=== PATIENT | male | born 1965 | race Caucasian/White ===

== ENCOUNTER → 2019-10-21 13:21 | Outpatient (CLI) | payer OTHER, MEDICAID, SELFPAY ==
--- NOTE | 2019-10-21 13:24 | DI.US.S_ITS ---
PROCEDURE: US PERIPH VENOUS LOW EXTREM LT INDICATIONS: CALF SWELLING TECHNIQUE: Real-time imaging, as well as color and pulse Doppler interrogation, were performed of the lower extremity deep veins from the inguinal ligament to the popliteal fossa. COMPARISON: None. FINDINGS: The common femoral, femoral and popliteal veins are normally compressible, and free of intraluminal thrombus. Color and pulse Doppler demonstrate normal phasic intraluminal flow. There is normal augmentation response to distal compression maneuver. IMPRESSION: No DVT in the left lower extremity. Dictated by: Danny Shay M.D. on 10/21/2019 at 13:54 Approved by: Danny Shay M.D. on 10/21/2019 at 13:54
== END ==
PROVIDERS: Referring Provider Physician Assistant; Visit Provider Physician Assistant
DX: M79.89 Other specified soft tissue disorders (principal)
CPT/HCPCS: 93971

== ENCOUNTER 2021-05-22 18:27 | Inpatient (IN) | payer OTHER, MEDICAID, SELFPAY ==
[2021-05-22 18:32] VITALS: BP 131/79; PULSE 113; RESP 22; TEMP 36.8; O2SAT 96
--- NOTE | 2021-05-22 18:55 | ED_ITS ---
HPI - Skin/Abscess/Foreign Bdy <SHANNON Aguirre - Last Filed: 05/22/21 20:38> General Chief complaint: Skin/Abscess/Foreign Body Stated complaint: Cut left hand pos infection Time Seen by Provider: 05/22/21 18:46 Source: patient Mode of arrival: Ambulatory Limitations: no limitations History of Present Illness HPI narrative: The patient is a 56-year-old male current everyday smoker who presents to the emergency department with a 6 day history of pain and swelling of his left index finger. Does have a history of cellulitis. 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 He states that he was seen at a walk-in clinic yesterday. He states he had an x-ray done. He states that his tetanus is up-to-date as he had it for years ago. He states that since yesterday his finger has gotten increasingly swollen, painful and red. He states he took Tylenol for pain, otherwise has not had anything for pain today. He states he is having trouble moving his finger so he came to the emergency department today. He states that the pain is extending from his left index finger, up to his hand. He denies any fevers, but states his hand feels warm denies any nausea vomiting or diarrhea, denies any muscle aches or chills. Related Data Home Medications Medication Instructions Recorded Confirmed No Known Home Medications 05/22/21 05/22/21 Allergies Allergy/AdvReac Type Severity Reaction Status Date / Time No Known Drug Allergies Allergy Unverified 10/21/19 13:10 Review of Systems <SHANNON Aguirre - Last Filed: 05/22/21 20:38> Review of Systems Narrative: GENERAL: Denies chills, fatigue, malaise, fever, sweats. HEENT: Denies sinus pain, ear pain, sore throat, difficulty swallowing, dizziness. RESPIRATORY: Denies dyspnea, cough, wheezing, hemoptysis, sputum. CARDIOVASCULAR: Denies chest pain, palpitations, orthopnea, edema, GASTROINTESTINAL: Denies nausea, vomiting, abdominal pain, diarrhea, constipation, melena. : Denies dysuria, frequency, incontinence, hematuria, urinary retention. MUSCULOSKELETAL: See HPI SKIN: See HPI NEUROLOGIC: Denies weakness, headache, numbness, change in speech, confusion, seizures, incoordination. PSYCHIATRIC: No concerning psychosocial issues. 12 point review of systems is negative except for those stated above Patient History <Tracey Jessica SALIMA-BC - Last Filed: 05/22/21 20:38> Social History household members: none Smoking Status: Current every day smoker alcohol intake: former Smoking Status: Current every day smoker Exam <Tracey Jessica SALIMA-BC - Last Filed: 05/22/21 20:38> Narrative Exam Narrative: GENERAL: This is a well-nourished, well-developed patient, appears uncomfortable HEAD: Atraumatic. Normocephalic. No temporal or scalp tenderness. EYES: Pupils equal round and reactive. Extraocular motions intact. No scleral icterus. No injection or drainage. ENT: Nose without bleeding, purulent drainage or septal hematoma. Wearing a mask. Airway patent. NECK: Trachea midline. No JVD or lymphadenopathy. Supple, nontender, no meningeal signs. CARDIOVASCULAR: Regular rate and rhythm RESPIRATORY: Clear to auscultation. Breath sounds equal bilaterally. No wheezes, rales, or rhonchi. No cough. No increased respiratory effort. No accessory muscle use. GASTROINTESTINAL: Abdomen soft, non-tender, nondistended. No hepato- splenomegaly, or palpable masses. No guarding. EXTREMITIES: Bilateral hands with multiple superficial cuts noted, left index finger with erythema and edema from the distal phalanx distally to entire finger. Swelling noted, the pain on active and passive range of motion, patient is unable to flex finger due to swelling and pain. No obvious drainage. Patient has small laceration noted on dorsum, over PIP joint of left index finger. No no abscess, no palpable fluctuance, no visible drainage. Painful to palpation. BACK: Nontender without deformity or crepitance. No flank tenderness. NEURO: AOx3. SKIN: See extremity exam Initial Vital Signs Initial Vital Signs: Vital Signs Temperature 98.2 F 05/22/21 18:32 Pulse Rate 113 H 05/22/21 18:32 Respiratory Rate 22 05/22/21 18:32 Blood Pressure 131/79 05/22/21 18:32 Pulse Oximetry 96 05/22/21 18:32 <Kalia Fountain MD - Last Filed: 05/23/21 01:35> Initial Vital Signs Initial Vital Signs: Vital Signs Temperature 98.2 F 05/22/21 18:32 Pulse Rate 113 H 05/22/21 18:32 Respiratory Rate 22 05/22/21 18:32 Blood Pressure 131/79 05/22/21 18:32 Pulse Oximetry 96 05/22/21 18:32 Course <Traceycrystal IrwinSALIMA singh- - Last Filed: 05/22/21 20:38> Orders Ordered: ED Orders 05/22/21 18:55 XR finger LT min 2V Stat 05/22/21 19:00 CRP [C-Reactive Protein Quant] Stat Complete Blood Count AUTO DIFF Stat Comprehensive Metabolic Panel Stat ESR [Erythrocyte Sedimentation Rate] Stat Lactate (Lactic Acid) Stat Procalcitonin Stat 05/22/21 20:00 COVID19 -Nasal swab/Pre-Proc Stat 05/22/21 21:00 Blood Culture Stat Hydrocodone Bitart/Acetaminophen (Hydrocodone/Acet 10/325 Tablet) 1 tab PO Q4HR PRN PRN Reason: Pain, Severe (7-10) Al Hydrox/Mg Hydrox/Simethicone (Mag Hydrox/Alum/Simeth 30 Ml Udc) 30 ml PO Q6HR PRN PRN Reason: Dyspepsia Diphenhydramine HCl (Diphenhydramine 25 Mg Tablet) 50 mg PO BEDTIME [facility] Last Admin: 05/23/21 01:14 Dose: 50 mg Documented by: OSVALDO Hydromorphone HCl (Hydromorphone 0.5 Mg Inj) 0.5 mg IV Q4H PRN PRN Reason: Breakthrough pain only (8-10) Last Admin: 05/22/21 22:56 Dose: 0.5 mg Documented by: OSVALDO Vancomycin HCl/Dextrose (Vancomycin) 1,500 mg in 300 mls @ 150 mls/hr IV Q21H [facility] Last Infusion: 05/22/21 23:52 Dose: 0 mls/hr Documented by: Admin: 05/22/21 21:41 Dose: 150 mls/hr Documented by: KERRI Morphine Sulfate (Morphine 2 Mg/Ml Inj) 2 mg IV Q4H PRN PRN Reason: Pain, Moderate (4-6) Morphine Sulfate (Morphine 10 Mg/Ml Inj) 6 mg IV Q4HR PRN PRN Reason: Pain, Severe (7-10) Last Admin: 05/23/21 01:20 Dose: 6 mg Documented by: OSVALDO Naloxone HCl (Naloxone 0.4 Mg/Ml Vial) 0.2 mg IV Q2MIN PRN PRN Reason: Opiate Reversal Ondansetron HCl (Ondansetron 4 Mg/2 Ml Inj) 4 mg IV Q8HR PRN PRN Reason: Nausea And Vomiting Pantoprazole Sodium (Pantoprazole Dr 20 Mg Tablet) 20 mg PO 0600 RO Discontinued Medications Diphenhydramine HCl (Diphenhydramine 25 Mg Tablet) 50 mg PO BEDTIME RO Sodium Chloride (Normal Saline 0.9%) 1,000 mls @ 1,000 mls/hr IV BOLUS ONE Stop: 05/22/21 19:56 Last Infusion: 05/22/21 21:33 Dose: 0 mls/hr Documented by: Admin: 05/22/21 19:09 Dose: 1,000 mls/hr Documented by: JAZMYNE Piperacillin Sod/Tazobactam (Sod 4.5 gm/ Sodium Chloride) 100 mls @ 200 mls/hr IV NOW ONE Stop: 05/22/21 20:28 Last Infusion: 05/22/21 21:37 Dose: 0 mls/hr Documented by: Admin: 05/22/21 20:42 Dose: 200 mls/hr Documented by: JAZMYNE Lorazepam (Lorazepam 1 Mg Tablet) 1 mg PO NOW ONE Stop: 05/23/21 00:45 Last Admin: 05/23/21 01:04 Dose: 1 mg Documented by: OSVALDO Morphine Sulfate (Morphine 4 Mg/Ml Inj) 4 mg IV NOW ONE Stop: 05/22/21 18:55 Last Admin: 05/22/21 19:08 Dose: 4 mg Documented by: JAZMYNE Morphine Sulfate (Morphine 4 Mg/Ml Inj) 4 mg IV NOW ONE Stop: 05/22/21 20:11 Last Admin: 05/22/21 20:20 Dose: 4 mg Documented by: JAYSON Nicotine (Nicotine 14 Patch) 14 mg TOP NOW ONE Stop: 05/22/21 21:09 Last Admin: 05/22/21 21:49 Dose: Not Given Documented by: KERRI Ondansetron HCl (Ondansetron 4 Mg/2 Ml Inj) 4 mg IV NOW ONE Stop: 05/22/21 18:55 Last Admin: 05/22/21 19:09 Dose: 4 mg Documented by: JAZMYNE Vancomycin HCl (Vancomycin Per Pharmacy) 1 request MISC NOW ONE Stop: 05/22/21 20:28 Last Admin: 05/22/21 21:32 Dose: Not Given Documented by: KERRI Vital Signs Vital signs: Vital Signs - 8 hr 05/22/21 18:32 05/22/21 19:28 Temperature 98.2 F 98.1 F Pulse Rate 113 H 104 H Respiratory Rate 22 17 Blood Pressure 131/79 157/89 H Pulse Oximetry 96 100 <Kalia Fountain MD - Last Filed: 05/23/21 01:35> Orders Ordered: ED Orders 05/22/21 18:55 XR finger LT min 2V Stat 05/22/21 19:00 CRP [C-Reactive Protein Quant] Stat Complete Blood Count AUTO DIFF Stat Comprehensive Metabolic Panel Stat ESR [Erythrocyte Sedimentation Rate] Stat Lactate (Lactic Acid) Stat Procalcitonin Stat 05/22/21 20:00 COVID19 -Nasal swab/Pre-Proc Stat 05/22/21 21:00 Blood Culture Stat Hydrocodone Bitart/Acetaminophen (Hydrocodone/Acet 10/325 Tablet) 1 tab PO Q4HR PRN PRN Reason: Pain, Severe (7-10) Al Hydrox/Mg Hydrox/Simethicone (Mag Hydrox/Alum/Simeth 30 Ml Udc) 30 ml PO Q6HR PRN PRN Reason: Dyspepsia Diphenhydramine HCl (Diphenhydramine 25 Mg Tablet) 50 mg PO BEDTIME [facility] Last Admin: 05/23/21 01:14 Dose: 50 mg Documented by: CMCFARL Hydromorphone HCl (Hydromorphone 0.5 Mg Inj) 0.5 mg IV Q4H PRN PRN Reason: Breakthrough pain only (8-10) Last Admin: 05/22/21 22:56 Dose: 0.5 mg Documented by: JEFFREYFARL Vancomycin HCl/Dextrose (Vancomycin) 1,500 mg in 300 mls @ 150 mls/hr IV Q21H [facility] Last Infusion: 05/22/21 23:52 Dose: 0 mls/hr Documented by: Admin: 05/22/21 21:41 Dose: 150 mls/hr Documented by: KERRI Morphine Sulfate (Morphine 2 Mg/Ml Inj) 2 mg IV Q4H PRN PRN Reason: Pain, Moderate (4-6) Morphine Sulfate (Morphine 10 Mg/Ml Inj) 6 mg IV Q4HR PRN PRN Reason: Pain, Severe (7-10) Last Admin: 05/23/21 01:20 Dose: 6 mg Documented by: OSVALDO Naloxone HCl (Naloxone 0.4 Mg/Ml Vial) 0.2 mg IV Q2MIN PRN PRN Reason: Opiate Reversal Ondansetron HCl (Ondansetron 4 Mg/2 Ml Inj) 4 mg IV Q8HR PRN PRN Reason: Nausea And Vomiting Pantoprazole Sodium (Pantoprazole Dr 20 Mg Tablet) 20 mg PO 0600 RO Discontinued Medications Diphenhydramine HCl (Diphenhydramine 25 Mg Tablet) 50 mg PO BEDTIME RO Sodium Chloride (Normal Saline 0.9%) 1,000 mls @ 1,000 mls/hr IV BOLUS ONE Stop: 05/22/21 19:56 Last Infusion: 05/22/21 21:33 Dose: 0 mls/hr Documented by: Admin: 05/22/21 19:09 Dose: 1,000 mls/hr Documented by: JAZMYNE Piperacillin Sod/Tazobactam (Sod 4.5 gm/ Sodium Chloride) 100 mls @ 200 mls/hr IV NOW ONE Stop: 05/22/21 20:28 Last Infusion: 05/22/21 21:37 Dose: 0 mls/hr Documented by: Admin: 05/22/21 20:42 Dose: 200 mls/hr Documented by: JAZMYNE Lorazepam (Lorazepam 1 Mg Tablet) 1 mg PO NOW ONE Stop: 05/23/21 00:45 Last Admin: 05/23/21 01:04 Dose: 1 mg Documented by: OSVALDO Morphine Sulfate (Morphine 4 Mg/Ml Inj) 4 mg IV NOW ONE Stop: 05/22/21 18:55 Last Admin: 05/22/21 19:08 Dose: 4 mg Documented by: JAZMYNE Morphine Sulfate (Morphine 4 Mg/Ml Inj) 4 mg IV NOW ONE Stop: 05/22/21 20:11 Last Admin: 05/22/21 20:20 Dose: 4 mg Documented by: JAYSON Nicotine (Nicotine 14 Patch) 14 mg TOP NOW ONE Stop: 05/22/21 21:09 Last Admin: 05/22/21 21:49 Dose: Not Given Documented by: KERRI Ondansetron HCl (Ondansetron 4 Mg/2 Ml Inj) 4 mg IV NOW ONE Stop: 05/22/21 18:55 Last Admin: 05/22/21 19:09 Dose: 4 mg Documented by: JAZMYNE Vancomycin HCl (Vancomycin Per Pharmacy) 1 request MISC NOW ONE Stop: 05/22/21 20:28 Last Admin: 05/22/21 21:32 Dose: Not Given Documented by: GETNOTT Vital Signs Vital signs: Vital Signs - 8 hr 05/22/21 18:32 05/22/21 19:28 Temperature 98.2 F 98.1 F Pulse Rate 113 H 104 H Respiratory Rate 22 17 Blood Pressure 131/79 157/89 H Pulse Oximetry 96 100 MDM - Skin/Abscess/Foreign Bdy <SALIMA Aguirre-BC - Last Filed: 05/22/21 20:38> Lab Data Result diagrams: 05/22/21 19:00 05/22/21 19:00 Labs: Lab Results 05/22/21 05/22/21 05/22/21 Range/Units 19:00 19:00 19:00 WBC 9.5 (4.5-11.0) X10^3/uL RBC 4.10 L (4.5-5.9) X10^6/uL Hgb 11.0 L (13.5-17.5) g/dL Hct 34.3 L (41-53) % MCV 83.5 (80-100) fL MCH 26.7 (26-34) PG MCHC 32.0 (30-36) % RDW 15.1 H (11.6-14.8) % Plt Count 286 (150-400) X10^3/uL Neut % (Auto) 75.9 H (50-75) % Lymph % (Auto) 13.5 L (25-40) % Charles % (Auto) 8.6 (3-14) % Eos % (Auto) 1.4 L (2-4) % Baso % (Auto) 0.6 (0-2) % Neut # (Auto) 7200 H (2480-9867) /uL Lymph # (Auto) 1300 (8358-0998) /uL Charles # (Auto) 800 (0-900) /uL Eos # (Auto) 100 (0-450) /uL Baso # (Auto) 100 (0-100) /uL ESR 34 H (0-15) MM/HR Sodium 137 (137-145) mmol/L Potassium 3.7 (3.4-5.1) mmol/L Chloride 98 (98-107) mmol/L Carbon Dioxide 36 H (22-32) mmol/L BUN 10 (9-20) mg/dL Creatinine 0.63 L (0.66-1.25) mg/dL Estimated GFR > 60.0 (>60) mL/min BUN/Creatinine Ratio 15.9 (6-22) Glucose 121 H (70-100) mg/dL Lactate 0.9 (0.7-2.1) mmol/L Calcium 8.6 (8.4-10.2) mg/dL Total Bilirubin 0.2 (0.2-1.3) mg/dL AST 18 (17-59) IU/L ALT 11 (<50) IU/L Alkaline Phosphatase 72 (38-126) U/L C-Reactive Protein 5.1 H (<1.0) mg/dL Total Protein 7.4 (6.3-8.2) g/dL Albumin 4.1 (3.5-5.0) g/dL Globulin 3.3 (1.7-4.1) g/dL Albumin/Globulin Ratio 1.2 (1.0-2.8) Procalcitonin 0.05 (<0.5) ng/mL SARS-CoV-2 (PCR) (Negative) 05/22/21 Range/Units 20:00 WBC (4.5-11.0) X10^3/uL RBC (4.5-5.9) X10^6/uL Hgb (13.5-17.5) g/dL Hct (41-53) % MCV (80-100) fL MCH (26-34) PG MCHC (30-36) % RDW (11.6-14.8) % Plt Count (150-400) X10^3/uL Neut % (Auto) (50-75) % Lymph % (Auto) (25-40) % Charles % (Auto) (3-14) % Eos % (Auto) (2-4) % Baso % (Auto) (0-2) % Neut # (Auto) (4953-9024) /uL Lymph # (Auto) (0792-5110) /uL Charles # (Auto) (0-900) /uL Eos # (Auto) (0-450) /uL Baso # (Auto) (0-100) /uL ESR (0-15) MM/HR Sodium (137-145) mmol/L Potassium (3.4-5.1) mmol/L Chloride (98-107) mmol/L Carbon Dioxide (22-32) mmol/L BUN (9-20) mg/dL Creatinine (0.66-1.25) mg/dL Estimated GFR (>60) mL/min BUN/Creatinine Ratio (6-22) Glucose (70-100) mg/dL Lactate (0.7-2.1) mmol/L Calcium (8.4-10.2) mg/dL Total Bilirubin (0.2-1.3) mg/dL AST (17-59) IU/L ALT (<50) IU/L Alkaline Phosphatase (38-126) U/L C-Reactive Protein (<1.0) mg/dL Total Protein (6.3-8.2) g/dL Albumin (3.5-5.0) g/dL Globulin (1.7-4.1) g/dL Albumin/Globulin Ratio (1.0-2.8) Procalcitonin (<0.5) ng/mL SARS-CoV-2 (PCR) Negative (Negative) MDM Narrative Medical decision making narrative: The patient is a 56-year-old male current everyday smoker who presents with a chief complaint of a possible infection with a cotton is left-hand. He has m ultiple scattered superficial appearing lacerations to his palmar aspect, as well as a laceration over his D IP joint with extending redness as well as an elevated ESR versus CRP. I did speak with Dr. Fountain, is concerned about tenosynovitis for this patient given his pain on passive range of motion. I did speak with Dr. Pérez, who recommended admission to Medicine, keeping the patient NPO after midnight and treating him with ted and Zojorge at this time. The patient was noted to try to leave the emergency department because ?nothing is being done and was talked into staying by nursing staff. The patient is signed out to Dr. Fountain pending hospitalist contact. <Kalia Fountain MD - Last Filed: 05/23/21 01:35> Lab Data Labs: Lab Results 05/22/21 05/22/21 05/22/21 Range/Units 19:00 19:00 19:00 WBC 9.5 (4.5-11.0) X10^3/uL RBC 4.10 L (4.5-5.9) X10^6/uL Hgb 11.0 L (13.5-17.5) g/dL Hct 34.3 L (41-53) % MCV 83.5 (80-100) fL MCH 26.7 (26-34) PG MCHC 32.0 (30-36) % RDW 15.1 H (11.6-14.8) % Plt Count 286 (150-400) X10^3/uL Neut % (Auto) 75.9 H (50-75) % Lymph % (Auto) 13.5 L (25-40) % Charles % (Auto) 8.6 (3-14) % Eos % (Auto) 1.4 L (2-4) % Baso % (Auto) 0.6 (0-2) % Neut # (Auto) 7200 H (4508-7651) /uL Lymph # (Auto) 1300 (6674-6607) /uL Charles # (Auto) 800 (0-900) /uL Eos # (Auto) 100 (0-450) /uL Baso # (Auto) 100 (0-100) /uL ESR 34 H (0-15) MM/HR Sodium 137 (137-145) mmol/L Potassium 3.7 (3.4-5.1) mmol/L Chloride 98 (98-107) mmol/L Carbon Dioxide 36 H (22-32) mmol/L BUN 10 (9-20) mg/dL Creatinine 0.63 L (0.66-1.25) mg/dL Estimated GFR > 60.0 (>60) mL/min BUN/Creatinine Ratio 15.9 (6-22) Glucose 121 H (70-100) mg/dL Lactate 0.9 (0.7-2.1) mmol/L Calcium 8.6 (8.4-10.2) mg/dL Total Bilirubin 0.2 (0.2-1.3) mg/dL AST 18 (17-59) IU/L ALT 11 (<50) IU/L Alkaline Phosphatase 72 (38-126) U/L C-Reactive Protein 5.1 H (<1.0) mg/dL Total Protein 7.4 (6.3-8.2) g/dL Albumin 4.1 (3.5-5.0) g/dL Globulin 3.3 (1.7-4.1) g/dL Albumin/Globulin Ratio 1.2 (1.0-2.8) Procalcitonin 0.05 (<0.5) ng/mL SARS-CoV-2 (PCR) (Negative) 05/22/21 Range/Units 20:00 WBC (4.5-11.0) X10^3/uL RBC (4.5-5.9) X10^6/uL Hgb (13.5-17.5) g/dL Hct (41-53) % MCV (80-100) fL MCH (26-34) PG MCHC (30-36) % RDW (11.6-14.8) % Plt Count (150-400) X10^3/uL Neut % (Auto) (50-75) % Lymph % (Auto) (25-40) % Charles % (Auto) (3-14) % Eos % (Auto) (2-4) % Baso % (Auto) (0-2) % Neut # (Auto) (1692-9587) /uL Lymph # (Auto) (9296-1659) /uL Charles # (Auto) (0-900) /uL Eos # (Auto) (0-450) /uL Baso # (Auto) (0-100) /uL ESR (0-15) MM/HR Sodium (137-145) mmol/L Potassium (3.4-5.1) mmol/L Chloride (98-107) mmol/L Carbon Dioxide (22-32) mmol/L BUN (9-20) mg/dL Creatinine (0.66-1.25) mg/dL Estimated GFR (>60) mL/min BUN/Creatinine Ratio (6-22) Glucose (70-100) mg/dL Lactate (0.7-2.1) mmol/L Calcium (8.4-10.2) mg/dL Total Bilirubin (0.2-1.3) mg/dL AST (17-59) IU/L ALT (<50) IU/L Alkaline Phosphatase (38-126) U/L C-Reactive Protein (<1.0) mg/dL Total Protein (6.3-8.2) g/dL Albumin (3.5-5.0) g/dL Globulin (1.7-4.1) g/dL Albumin/Globulin Ratio (1.0-2.8) Procalcitonin (<0.5) ng/mL SARS-CoV-2 (PCR) Negative (Negative) Discharge Plan Departure Patient Disposition: Admitted as Observation Clinical Impression: Finger infection Admit Date/Time: 05/22/21 20:51 Admit Provider: Bharath Lambert <Kalia Fountain MD - Last Filed: 05/23/21 01:35> Cosign ED Attending Cosignature Attestation: I was immediately available in the department for consultation. This documentation has been reviewed and I agree with assessment and plan. Supervised by Kalia Fountain MD
--- NOTE | 2021-05-22 18:55 | DI.RAD.S_ITS ---
PROCEDURE: XR FINGER LT MIN 2V INDICATIONS: swelling, pain after cut/ fall TECHNIQUE: AP hand, 2 views of the 2nd finger(s) acquired. COMPARISON: None. FINDINGS: Bones: No fractures or dislocations. No suspicious bony lesions. Soft tissues: No suspicious soft tissue calcifications. Punctate foreign bodies are present in the palmar aspect of the 1st distal phalanx. IMPRESSION: 1. No visible fractures. 2. Tiny foreign bodies in the tissues of the 2nd digit. Correlate clinically. Dictated by: Alisa Cleveland M.D. on 05/22/2021 at 19:46 Approved by: Alisa Cleveland M.D. on 05/22/2021 at 19:48
[2021-05-22] MEDS: MORPHINE 4 MG/ML INJ IV ×2 (19:08→20:20)
[2021-05-22 19:09] LABS: Add Manual Diff / Slide Review NO; Basophils Absolute Auto 100 /uL (0-100); Basophils Percent Auto 0.6 % (0-2); Eosinophils Absolute Auto 100 /uL (0-450); Eosinophils Percent Auto 1.4 % (2-4); Hematocrit 34.3 % (41-53); Lymphocytes Absolute Auto 1300 /uL (1100-4500); Lymphocytes Percent Auto 13.5 % (25-40); Mean Corpuscular Hemoglobin 26.7 PG (26-34); Mean Corpuscular Volume 83.5 fL (80-100); Monocytes Absolute Auto 800 /uL (0-900); Monocytes Percent Auto 8.6 % (3-14); Neutrophils Absolute Auto 7200 /uL (1500-7000); Neutrophils Percent Auto 75.9 % (50-75); Platelet Count 286 X10^3/uL (150-400); Red Cell Distribution Width 15.1 % (11.6-14.8); White Blood Cell Count 9.5 X10^3/uL (4.5-11.0)
[2021-05-22] MEDS: ONDANSETRON 4 MG/2 ML INJ IV (19:09)
[2021-05-22] MEDS: SODIUM CHLORIDE 0.9% 1,000 ML 1000 ML IV (19:09)
[2021-05-22 19:26] LABS: Lactate (Lactic Acid) 0.9 mmol/L (0.7-2.1)
[2021-05-22 19:28] VITALS: BP 157/89; PULSE 104; RESP 17; TEMP 36.7; O2SAT 100
[2021-05-22 19:30] LABS: Alanine Aminotransferase 11 IU/L (<50); Albumin 4.1 g/dL (3.5-5.0); Albumin Globulin Ratio 1.2 (1.0-2.8); Alkaline Phosphatase 72 U/L (38-126); Aspartate Aminotransferase 18 IU/L (17-59); BUN Creatinine Ratio 15.9 (6-22); Bilirubin Total 0.2 mg/dL (0.2-1.3); Blood Urea Nitrogen 10 mg/dL (9-20); C-Reactive Protein Quant 5.1 mg/dL (<1.0); Calcium 8.6 mg/dL (8.4-10.2); Carbon Dioxide 36 mmol/L (22-32); Chloride 98 mmol/L (98-107); Estimated Glomerular Filt Rate > 60.0 mL/min (>60); Globulin 3.3 g/dL (1.7-4.1); Glucose 121 mg/dL (70-100); HEMOLYSIS < 15 (0-50); Potassium 3.7 mmol/L (3.4-5.1); Sodium 137 mmol/L (137-145); Total Protein 7.4 g/dL (6.3-8.2)
[2021-05-22 19:32] LABS: Erythrocyte Sedimentation Rate 34 MM/HR (0-15)
[2021-05-22 19:44] LABS: Procalcitonin 0.05 ng/mL (<0.5)
[2021-05-22] MEDS: PIPERACILLIN/TAZO 4.5 GM in SODIUM CHLORIDE 0.9% 100 ML 200 ML IV (20:42)
--- NOTE | 2021-05-22 20:58 | P.HP_ITS ---
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 Hx of trauma with fall onto chair 5 days ago, and subsequent presentation to care settings without going to ED and continuing to work however he is here now due to the pain and swelling which is getting worse and does not respond to ice or elevation or nsaids. He is otherwise generally healthy does not take any medications no allergies. hx of carpal tunnel repair x2 on L wrist, x1 on R wrist. No family history of stroke or heart attack. Feels generally ok except for finger which is quite painful he is inclined to pace to distract himself. Patient History Family & Social History Tobacco & Substance use: Smoking Status Current every day smoker Meds Home Medications and Allergies Allergies Allergy/AdvReac Type Severity Reaction Status Date / Time No Known Drug Allergies Allergy Unverified 10/21/19 13:10 Review of Systems Review of Systems Narrative: all systems reviewed and negative except as otherwise documented in HPI Exam Vital Signs (past 8 hours): - 05/22/21 18:32 05/22/21 19:28 Temperature 98.2 F 98.1 F Pulse Rate 113 H 104 H Respiratory Rate 22 17 Blood Pressure 131/79 157/89 H Pulse Oximetry 96 100 Oxygen Delivery Method Room Air Narrative Exam Narrative: hunched over holding finger on hospital bed HENMT Other: normocephalic atraumatic Resp Other: clear to auscultation bilaterally odor of tobacco Cardio Other: regular rate and rhythm s1/s2 GI Other: soft nontender normal bowel sounds Skin Other: multiple small wounds to both hands/all fingers in various states of healing Neuro General: patient alert, patient awake, patient oriented x3 and CN's II-XI intact bilaterally Extrem Other: LUE 2nd digit grossly swollen erythematous and exquisitely tender to touch and ranging. Distal fingertip appears to be very heavily callused. Psych Appearance: grossly normal Mental Status: mental status grossly normal (not excited about being in hospital wants to go for a smoke) Objective Labs Result Diagrams: 05/22/21 19:00 05/22/21 19:00 Labs: Laboratory Results - last 24 hr 05/22/21 05/22/21 05/22/21 19:00 19:00 19:00 WBC 9.5 RBC 4.10 L Hgb 11.0 L Hct 34.3 L MCV 83.5 MCH 26.7 MCHC 32.0 RDW 15.1 H Plt Count 286 Neut % (Auto) 75.9 H Lymph % (Auto) 13.5 L [place] % (Auto) 8.6 Eos % (Auto) 1.4 L Baso % (Auto) 0.6 Neut # (Auto) 7200 H Lymph # (Auto) 1300 [place] # (Auto) 800 Eos # (Auto) 100 Baso # (Auto) 100 ESR 34 H Sodium 137 Potassium 3.7 Chloride 98 Carbon Dioxide 36 H BUN 10 Creatinine 0.63 L Estimated GFR > 60.0 BUN/Creatinine Ratio 15.9 Glucose 121 H Lactate 0.9 Calcium 8.6 Total Bilirubin 0.2 AST 18 ALT 11 Alkaline Phosphatase 72 C-Reactive Protein 5.1 H Total Protein 7.4 Albumin 4.1 Globulin 3.3 Albumin/Globulin Ratio 1.2 Procalcitonin 0.05 Assessment & Plan Assessment & Plan narrative: #STEPHY 2nd digit cellulitis acute present on admission no fracture noted on XR, ortho is planning to see him tomorrow, could certainly have some joint involvement given time before presenting to care and how much he works with his hands NPO after midnight, broad spectrum abx, blood cultures, pain control #tobacco abuse prn nicotine patch diet: NPO after midnight Code: full covid: negative dvt ppx: SCDs pcp: none MDM: ex [id number] Time Spent With Patient Critical Care time: I spent a total of [] minutes of critical care time on this patient's care today; this time is exclusive of procedural time.
[2021-05-22 21:15] VITALS: PULSE 98; O2SAT 97
[2021-05-22 21:19] LABS: COVID19 -Nasal RAPID Negative (Negative)
[2021-05-22 21:30] VITALS: BP 141/77; PULSE 100; O2SAT 97
[2021-05-22] MEDS: VANCOMYCIN 1,500 MG/300 ML PIGGYBACK 150 MG IV (21:41)
[2021-05-22 21:50] VITALS: BMI 23.0
[2021-05-22 22:02] VITALS: BP 149/99; PULSE 96; RESP 18; TEMP 36.7; O2SAT 96
[2021-05-22] MEDS: HYDROMORPHONE 0.5 MG INJ IV (22:56)
--- NOTE | 2021-05-22 23:52 | PC.NURSE ---
Pt is very agitated-swearing and convinced that the IV Vanco is increasing his swelling and pain in his finger. Insisted that IV Vanco infusion be turned off with approx. 1/2 of the bag still to infuse. Pt is clearly frustrated and in pain and states he feels that nothing is being done. Spoke with Pt for a little bit and he was able to calm down but he would not allow the Vanco infusion to continue.
[2021-05-23] VITALS (10 sets, daily range): BP systolic 103–136; BP diastolic 58–79; PULSE 85–100; RESP 14–20; TEMP 36.6–37.9; O2SAT 93–100; BMI 23.0
[2021-05-23] MEDS: LORazepam 1 MG TABLET PO (01:04)
[2021-05-23] MEDS: diphenhydrAMINE 25 MG TABLET 50 MG PO ×2 (01:14→21:31)
[2021-05-23] MEDS: MORPHINE 10 MG/ML INJ 6 MG IV (01:20)
--- NOTE | 2021-05-23 01:53 | PC.NURSE ---
Pt admitted to room 203 from ER with c/o left index finger pain. Finger is red swollen and puffy, shiny, with a dark area and a light donovan area to the pad and tip of the finger. Pt is hostile and angry and states no one is helping him. Pt refused to remove his clothes for a physical assessment and remains fully dressed with his boots on. Pt has Vancomycin IV infusing and is aware that he is to have an I & D in the morning to help to relieve his pain and treat his infection. Pt is to be NPO at midnight for surgery in the morning and was given some snacks to eat and water and milk to drink per his request prior to his cut-off time of Midnight. Pt is very angry and states nothing is being done to fix his finger and that his pain is 3000/10. Pt received 4mg Morphine IV at 1908 and 2020 received Dilaudid 0.5 IV at 2256, Lorazepam 1mg PO at 0104, Diphenhydramine 50mg at 0114 and Morphine 6mg IV at 0120. Pt demanded that the Vancomycin infusion be stopped because he felt that it was making the swelling worse, refused an ice pack and states that makes the pain worse, refused to elevate his left hand/finger because he states that makes the pain worse and refused any other suggestions to help make him more comfortable including resting in the bed. Pt has been sitting on the side of the bed slumped over and holding his left hand and finger - he has been approached several times to please scoot back to a safer position on the bed or lay down but refuses and continues to sit in a potentially high fall risk position. Pt removed his IV and stated he was going to leave-spoke with the Pt for a while to explain the need for IV antibiotics to help with the infection and have the surgery to clean out the wound. Coordinator Dinah spoke with Pt for at least 20 minutes explaining the proposed treatment plan and the need for antibiotics and Pt stated he still wanted to go home and have his friend put a hole in his finger to relieve the pressure. Dr. Lambert - admitting physical was called to come to speak to Pt and came up from the ER to talk with him. Pt agreed to stay and a new IV was placed. New orders were written and given as above. Vanco IV was restarted to infuse the balance left in the bag. Pt still remains slumped over holding his left hand and refuses to lay down or rest on his overbed tray.
--- NOTE | 2021-05-23 05:48 | PC.NURSE ---
BIOMEDICAL ENGINEERING SUPERVISOR note: walked by patient's room. Patient was sitting on very edge of bed leaning forward, head on mattress, but leaning forward. First I said to him Jevon, why don't you go lay down? Patient didn't respond. Asked patient again to please lay down. Got at patient's eye level and asked him Jevon, I need you to lay down. Your head is like 18 inches from the floor and I don't want you to hurt yourself. Patient refused to lay down. Patient stayed where he was. I alerted the nurse, Lisette, about patient.
--- NOTE | 2021-05-23 06:54 | PM.CN ---
History of Present Illness Consult details Date Patient Seen: 05/23/21 Time Patient Seen: 06:35 Chief complaint: Cut left hand pos infection Reason for consult: Left index finger infection Requesting provider: Tracey Jessica Narrative: Patient is a 56-year-old male that has a 5-7 day history of a left index finger infection. States he fell over a chair at work and had several poke hole cuts to his finger on the volar and dorsal aspect. He was seen in urgent care and apparently urge to go to the ER which he did not do several days ago. He came to [facility] ER last night. He had a swollen and erythematous digit. Reportedly pain both dorsal and volar on the digit and erythema to the MCP and dorsal wrist. Emergency room was concerned about flexor tenosynovitis. That x-ray was taken there was concern for foreign bodies at the volar distal phalanx pulp. The patient was admitted for IV antibiotics possible surgical debridement. Of note it is reported to this physician that patient made 1 attempt to leave Against Medical Advice in the emergency room then decided to stay. He was able to get a dose of Zosyn down stairs he had half of his bag of vancomycin before he removed his IV then agree to stay the IV was replaced and the bag was finished. This morning he has been up and washing his hands. He states the finger hurts all the time but states he just woke up and it is difficult to get him to answer questions or interact. He works as a [employer] Home Medications and Allergies Home Medications Medication Instructions Recorded Confirmed Type No Known Home Medications 05/22/21 05/22/21 History Allergies Allergy/AdvReac Type Severity Reaction Status Date / Time No Known Drug Allergies Allergy Unverified 10/21/19 13:10 Review of Systems Review of Systems Narrative: Negative other than finger pain. And history of shingles ROS: Yes All systems reviewed with the patient and are negative except as otherwise documented Exam Vital Signs (past 8 hours): Oxygen Delivery Method Room Air Narrative Exam Narrative: Patient is awake and alert oriented to time place but displays a flattened affect spending most of the visit looking down and is hand rather than making eye contact. HEENT exam normocephalic atraumatic. Slightly discharge hold. Lung exam clear to auscultation bilaterally. Heart exam regular rate and rhythm. Upper extremities moving upper extremities without limitation except for decreased range of motion left index finger with moderate swelling focused at the distal phalanx and expectedly along the volar pulp consistent with fail on. Small white area may represent an abscess. There is also tenderness dorsally over the D IP joint without any wounds. There are some tiny poke hole type lesions at the distal pole. There is also a small healed scab around the area of the dorsal PIP. There is no pain on today's examination along the flexor tendon sheath along the middle and proximal phalanx. There is no erythema the on the distal phalanx on this morning's exam. A nurse in the room states there was some more proximally along the dorsum of the finger yesterday but this has not been drawn out or demarcated to inspect. There is a palpable radial pulse. The patient is able to demonstrate flexion and extension at the MCP joint. Distal tip of the finger is callused. But sensation appears grossly intact Objective Imaging Hand x-ray left: My impression: Hand x-ray no fractures. There is swelling at the left index finger specially around the distal phalanx. Tiny radiopaque foreign bodies of the volar pulp Radiologist's impression: IMPRESSION: 1. No visible fractures. 2. Tiny foreign bodies in the tissues of the 2nd digit. Correlate clinically. Dictated by: Alisa Cleveland M.D. on 05/22/2021 at 19:46 Approved by: Labs Result Diagrams: 05/22/21 19:00 05/22/21 19:00 Labs: Laboratory Results - last 24 hr 05/22/21 05/22/21 05/22/21 19:00 19:00 19:00 WBC 9.5 RBC 4.10 L Hgb 11.0 L Hct 34.3 L MCV 83.5 MCH 26.7 MCHC 32.0 RDW 15.1 H Plt Count 286 Neut % (Auto) 75.9 H Lymph % (Auto) 13.5 L [place] % (Auto) 8.6 Eos % (Auto) 1.4 L Baso % (Auto) 0.6 Neut # (Auto) 7200 H Lymph # (Auto) 1300 [place] # (Auto) 800 Eos # (Auto) 100 Baso # (Auto) 100 ESR 34 H Sodium 137 Potassium 3.7 Chloride 98 Carbon Dioxide 36 H BUN 10 Creatinine 0.63 L Estimated GFR > 60.0 BUN/Creatinine Ratio 15.9 Glucose 121 H Lactate 0.9 Calcium 8.6 Total Bilirubin 0.2 AST 18 ALT 11 Alkaline Phosphatase 72 C-Reactive Protein 5.1 H Total Protein 7.4 Albumin 4.1 Globulin 3.3 Albumin/Globulin Ratio 1.2 Procalcitonin 0.05 SARS-CoV-2 (PCR) 05/22/21 20:00 WBC RBC Hgb Hct MCV MCH MCHC RDW Plt Count Neut % (Auto) Lymph % (Auto) [place] % (Auto) Eos % (Auto) Baso % (Auto) Neut # (Auto) Lymph # (Auto) [place] # (Auto) Eos # (Auto) Baso # (Auto) ESR Sodium Potassium Chloride Carbon Dioxide BUN Creatinine Estimated GFR BUN/Creatinine Ratio Glucose Lactate Calcium Total Bilirubin AST ALT Alkaline Phosphatase C-Reactive Protein Total Protein Albumin Globulin Albumin/Globulin Ratio Procalcitonin SARS-CoV-2 (PCR) Negative [facility] Social History marital status: unknown household members: none Tobacco & Substance Use Smoking Status: Current every day smoker alcohol intake: former Assessment & Plan Assessment and plan (1) Felon of finger of left hand: Problem details: The patient has swelling and pain of the distal phalanx of the left digit with punctate area of exquisite tenderness at the volar distal pulp consistent with felon. He does not appear to have any flexor tenosynovitis at this point. We did discuss with untreated felon can progress and sometimes eventually involve the flexor tendon sheath. Also discussed extension and possible involvement of the D IP joint septic arthritis. He has been getting worse over the last several days. Recommend drainage of the [place] possible I&D of the distal phalanx as indicated. This would be done in the operating room. The risks and benefits of the procedure have been discussed with the patient given the opportunity to ask questions. The risks of surgery include but are not limited to infection, stiffness, need for additional surgery, persistence of pain, damage to nerves and blood vessels, posttraumatic arthritis, DVT, PE, cardiopulmonary complications and . The patient stated he needed more time to ?wake up and wanted to read over the consent again. I left this with him after thoroughly going over it. I explained to the patient that if he consents to surgery this would be done today in the operating room when time was available likely early afternoon. Until that time was recommended that he continue on scheduled IV antibiotics. He may do warm soapy water soaks as well. We discussed that after surgery he would have open incisions that are allowed to drain and would resume soaks and dressing changes about 24 hours after surgery. Status: Acute (2) Finger infection: Status: Acute COVID-19 COVID-19 status: Negative Time Spent With Patient Time with patient: less than 30 minutes Critical Care time: I spent a total of [] minutes of critical care time on this patient's care today; this time is exclusive of procedural time.
[2021-05-23] MEDS: HYDROMORPHONE 0.5 MG INJ IV (09:24)
--- NOTE | 2021-05-23 10:37 | PC.NURSE ---
Addendum entered by Amber Lemons R.N. 05/23/21 18:09: Patient refused pain, refused tylenol. Addendum entered by Amber Lemons R.N. 05/23/21 17:55: Patient returned from Sx, A/Ox3, sleepy. Able to ambulate to bathroom, refused assist. Locked door. Asked patient to leave door unlocked for safety, patient agreed. Patient refusing continuous use of VS machine, BP obtained when patient agrees, pulse ox remains on until patient removes it. Period checks. Patients VSS, currently the continuous pulse ox is on, HR 88, 125/65, 92-99% on RA, 98.5 temp, RR 14. ABX and fluids infusing. Bed alarm on. Patient does not call when getting OOB. Addendum entered by Amber Lemons R.N. 05/23/21 12:48: When it came time to take the [place] patient tossed pill saying he did not want it, it would make him sick. Patient off unit for procedure. Addendum entered by Amber Leomns R.N. 05/23/21 12:30: [place] administered with sip of water. Original Note: Patient resting at edge of bed. Breathing unlabored, eyes closed, VSS. Patient endorses 6/10 pain when asked. L Forefinger is tight, edematous, pink, warm. Pulses palpable. Explained to patient that we would have to get him prepped for surgery later this morning, patient said just stop dicking around and give me my pain medications, everything everyone is telling me is a lie. Morphine 2mg IV PRN administered. Patient up to restroom independently, urinating without complication. Remains NPO at this time. Patient refusing SCD's. Patient refusing to be in a gown at this time. Will try again later. R HERACLIO IV patent. Spoke with patients ex- over the phone with the permission of the patient. Updated her.
[2021-05-23] MEDS: LACTATED RINGERS 1,000 ML 42 ML IV (12:50)
[2021-05-23] MEDS: VANCOMYCIN 1,250 MG/250 ML PIGGYBACK 250 MG IV ×2 (13:30→21:32)
[2021-05-23] MEDS: BUPIVACAINE 0.25% (PF) 30 ML, EPINEPHrine 0.15 MG INJ (14:08)
--- NOTE | 2021-05-23 14:13 | SUR.OPER ---
Supine on padded OR bed, head on pillow, right arm secured on padded arm boards at <90 degrees abduction, left arm on arm board extension and in control of the surgeon, legs uncrossed, safety belt at thigh, tape over blanket over lower legs.
--- NOTE | 2021-05-23 14:32 | P.OP_ITS ---
Operative Date/Time/Diagnoses Date of procedure: 05/23/21 Time of procedure: 14:32 Pre-op diagnosis: Left index finger infection. [place] DIP septic arthritis left index finger Post-op diagnosis: same Procedure & Clinicians Procedure: Irrigation debridement left index finger distal interphalangeal joint CPT code 39267 Irrigation debridement left middle finger felon CPT code 34888-43 Same procedure as scheduled: Yes Indications: The patient is a 56-year-old male with a left index finger pain swelling at the distal tip of the finger x5 days. He had an injury where he had several small lacerations. When seen in urgent care and the ER. He has failed non operative treatment. Have fluctuance at the distal pulp as well as dorsally at the PIP joint and erythema. He was indicated for operative irrigation and debridement. The risks and benefits of the procedure have been discussed with the patient given the opportunity to ask questions. The risks of surgery include but are not limited to infection, need for additional procedures, persistence of pain, damage to nerves and blood vessels, posttraumatic arthritis, DVT, PE, cardiopul monary complications and . The patient expressed a thorough understanding of the risks and benefits of surgery and has elected to proceed. Consent was signed. Surgeon: Allyson Silva Click Yes if Unassisted: Yes Anesthesia Type: General and Local Operative Notes Findings: Gross thick purulence upon incision at the fail on and at the dorsal incision the D IP joint. There was additionally subcutaneous tunnel from the fell onto the dorsal distal phalanx soft tissue. Closure Type: not applicable (Two loose sutures placed dorsally and packing edwige left dorsally and packed open volarly) Specimen(s): other (Culture swabs.) Estimated Blood Loss (mL): 2 Blood products transfused: none Tourniquet time (min): 12 Procedure in detail: Patient was seen in the preoperative area the site of surgery marked informed consent confirmed. Brought back to the operating room by the anesthesia team positioned supine on operative table. Bony prominences well padded. A well- padded brachial tourniquet was placed on the operative extremity. The left arm was prepped and draped in the standard sterile fashion a formal time-out procedure was performed confirming the patient's side and site of surgery and administration of antibiotic. The patient had been on scheduled antibiotics from the floor. Attention was turned to the left index finger. [place] exsanguination was used the tourniquet raised on the arm to 250 mmHg. A 5 cc of 0.25% Marcaine with epinephrine was used as a metacarpal digital block. Attention was turned to the digit this was exquisitely swollen at the distal phalanx volarly and dorsally and there was fluctuance. There was no fluctuance along the middle or proximal phalanx. A curvilinear incision over the distal phalanx was made down through the skin and subcutaneous tissue. Purulence was encountered. This tracked subcutaneously back around to the saline in the distal pole. Separately this did track back to the D IP joint. The IP joint was opened and irrigated. Separate incision was made longitudinally along the distal pulp of the index f reji immediate gross purulence was encountered. This was a large volume and after evacuation there was a thin epidermis left as there had been some necrosis of the pulp fat. Both incisions were thoroughly irrigated with a bulb syringe and sterile saline. Once this was completed packing edwige were placed into the volar wound and a separate packing with was placed into the dorsal wound. Two loose sutures were placed dorsally over the joint. The tourniquet was released. Hemostasis was achieved. A sterile dressing with Xeroform gauze and Coban was placed. The digit was noted to pink up well with good cap refill after the procedure. Drapes removed the patient was woken from anesthesia and taken to recovery room in good condition. There no immediate complications from this procedure. Complications: none Post-operative Condition: stable Disposition: PACU Plan for aftercare: Will go back to the floor for continued IV antibiotics. Cultures are pending but thick purulence material was expressed. Will start b.i.d. warm soapy soaks on postoperative day 1. If possible were placed packing wick dorsally and volarly to help keep these incisions open to drain. Sutures to be removed in 7- 10 days. Once appropriate can discharge on culture appropriate oral antibiotics. Patient is encouraged to do finger flexion extension to avoid stiffness
--- NOTE | 2021-05-23 14:33 | CM.DANOTE ---
Patient is a 56 yo male who was admitted on 05/22/21 for possible hand infection. Pt has [facility] and [employer] for insurance and his PCP is not listed. EMR was reviewed. Per MD, pt with a fall over a chair a few days ago and injury to his finger and now admitted with 2nd digit cellulitis but no fx. Per Ortho MD, pt to have I&D today and will culture pt's wound to r/o IV-Abx and will likely need ongoing basic wound care. Per RN, pt has been quite agitated and not very amenable to care and frustrated/rude with staff and almost left AMA this morning. SW attempted a couple times to meet with pt bedside to determine PCP and possible d/c needs but pt remains off floor in OR. Plan: SW to follow closely once pt returns to the floor for bedside assessment to determine any d/c planning needs and r/o IV-Abx at discharge. KARON Lowe Discharge Planning/Care Management CM Discharge Assessment Start: 05/23/21 14:30 Freq: Status: Active Protocol: Document 05/23/21 14:31 BF (Rec: 05/23/21 14:33 BF [id number]) Discharge Planning Assessment Assigned Diplomatic Interpreter KARON Dos Santos DPOA/Assigned Designee Name unknown Advance Directives? No History Provided By Patient,Medical Record Has Patient been admitted in last 30 No days? Prior Living Arrangements House Household Members none Type of transporation used prior to Drives own vehicle admit Independent with ADL's Yes Is patient alert and oriented? Yes Caregiver for Another No Comment r/o IV-Abx Discharge Plan Home Review Status In Process Please Provide Date Initial DC 05/23/21 Assessment Was Performed Next Review Type Continued Stay Review
--- NOTE | 2021-05-23 16:50 | PM.PN.1 ---
Subjective Subjective Date Patient Seen: 05/23/21 Interval history: The patient is a 56-year-old male who was admitted to the hospital for a left index finger infection. He is status post I&D and debridement. There was a large amount of pus obtained in the operating room. G stain and cultures are pending. Patient is on vancomycin, and will add Zosyn back given the degree of infection. Patient is somewhat lethargic postoperatively Exam Vital Signs (past 8 hours): - 05/23/21 13:02 05/23/21 14:41 05/23/21 14:50 Temperature 98.8 F 97.9 F Pulse Rate 100 H 100 H 100 H Respiratory Rate 16 16 16 Blood Pressure 118/71 103/58 L 106/67 Pulse Oximetry 93 100 100 05/23/21 15:00 05/23/21 15:15 05/23/21 15:40 Temperature 98.6 F 98 F 100.2 F H Pulse Rate 85 99 H 99 H Respiratory Rate 14 14 20 Blood Pressure 112/70 112/62 136/79 Pulse Oximetry 98 98 98 05/23/21 15:53 05/23/21 16:10 Temperature 98 F Pulse Rate 98 H 95 H Respiratory Rate 16 20 Blood Pressure 112/66 107/63 Pulse Oximetry 98 96 Oxygen Delivery Method Room Air Oxygen Flow Rate 0 Narrative Exam Narrative: Pleasant male lying in bed somewhat sleepy after anesthesia Resp Other: Lungs clear to auscultation Cardio Other: Cardiac exam: Regular rate and rhythm normal S1-S2 GI Other: Abdomen soft nontender nondistended Extrem Other: Left index finger in a dressing Objective Labs Result Diagrams: 05/22/21 19:00 05/22/21 19:00 Labs: Laboratory Results - last 24 hr 05/22/21 05/22/21 05/22/21 19:00 19:00 19:00 WBC 9.5 RBC 4.10 L Hgb 11.0 L Hct 34.3 L MCV 83.5 MCH 26.7 MCHC 32.0 RDW 15.1 H Plt Count 286 Neut % (Auto) 75.9 H Lymph % (Auto) 13.5 L [place] % (Auto) 8.6 Eos % (Auto) 1.4 L Baso % (Auto) 0.6 Neut # (Auto) 7200 H Lymph # (Auto) 1300 [place] # (Auto) 800 Eos # (Auto) 100 Baso # (Auto) 100 ESR 34 H Sodium 137 Potassium 3.7 Chloride 98 Carbon Dioxide 36 H BUN 10 Creatinine 0.63 L Estimated GFR > 60.0 BUN/Creatinine Ratio 15.9 Glucose 121 H Lactate 0.9 Calcium 8.6 Total Bilirubin 0.2 AST 18 ALT 11 Alkaline Phosphatase 72 C-Reactive Protein 5.1 H Total Protein 7.4 Albumin 4.1 Globulin 3.3 Albumin/Globulin Ratio 1.2 Procalcitonin 0.05 SARS-CoV-2 (PCR) 05/22/21 20:00 WBC RBC Hgb Hct MCV MCH MCHC RDW Plt Count Neut % (Auto) Lymph % (Auto) [place] % (Auto) Eos % (Auto) Baso % (Auto) Neut # (Auto) Lymph # (Auto) [place] # (Auto) Eos # (Auto) Baso # (Auto) ESR Sodium Potassium Chloride Carbon Dioxide BUN Creatinine Estimated GFR BUN/Creatinine Ratio Glucose Lactate Calcium Total Bilirubin AST ALT Alkaline Phosphatase C-Reactive Protein Total Protein Albumin Globulin Albumin/Globulin Ratio Procalcitonin SARS-CoV-2 (PCR) Negative [facility] Social History marital status: unknown household members: none Smoking Status: Current every day smoker alcohol intake: former Assessment & Plan Assessment & Plan narrative: 1. Septic arthritis involving the left index finger -patient is status post I&D -continue IV vancomycin, Will and IV Zosyn -await Gram stain and culture -continue pain medication 2. Nicotine dependence -negative during to pad Disposition per Orthopedic Time Spent With Patient Critical Care time: I spent a total of [] minutes of critical care time on this patient's care today; this time is exclusive of procedural time. Quality VTE Deep Vein Thrombosis/Pulmonary Embolism Present on Admission: No
[2021-05-23] MEDS: PIPERACILLIN/TAZO 3.375 GM in SODIUM CHLORIDE 0.9% 100 ML 25 ML IV (17:39)
[2021-05-23] MEDS: SODIUM CHLORIDE 0.9% 1,000 ML 100 ML IV (17:54)
[2021-05-23] MEDS: ACETAMINOPHEN 325 MG TABLET 975 MG PO (21:31)
[2021-05-23] MEDS: DOCUSATE 100 MG CAPSULE PO (21:32)
[2021-05-24] VITALS: BP 119/61; PULSE 74; RESP 16; TEMP 36.3; O2SAT 97
[2021-05-24] MEDS: PIPERACILLIN/TAZO 3.375 GM in SODIUM CHLORIDE 0.9% 100 ML 25 ML IV ×2 (00:26→08:46)
[2021-05-24] MEDS: SODIUM CHLORIDE 0.9% 1,000 ML 100 ML IV (03:08)
[2021-05-24 05:14] LABS: Add Manual Diff / Slide Review NO; Basophils Absolute Auto 100 /uL (0-100); Basophils Percent Auto 0.5 % (0-2); Eosinophils Absolute Auto 100 /uL (0-450); Eosinophils Percent Auto 0.9 % (2-4); Hematocrit 33.1 % (41-53); Hemoglobin 10.5 g/dL (13.5-17.5); Lymphocytes Absolute Auto 1000 /uL (1100-4500); Lymphocytes Percent Auto 8.3 % (25-40); Mean Corpuscular HGB Conc 31.6 % (30-36); Mean Corpuscular Hemoglobin 26.2 PG (26-34); Mean Corpuscular Volume 82.7 fL (80-100); Monocytes Absolute Auto 1000 /uL (0-900); Monocytes Percent Auto 8.2 % (3-14); Neutrophils Absolute Auto 10400 /uL (1500-7000); Neutrophils Percent Auto 82.1 % (50-75); Platelet Count 285 X10^3/uL (150-400); Red Cell Distribution Width 14.8 % (11.6-14.8); White Blood Cell Count 12.7 X10^3/uL (4.5-11.0)
[2021-05-24 05:20] LABS: BUN Creatinine Ratio 13.3 (6-22); Blood Urea Nitrogen 8 mg/dL (9-20); Calcium 8.4 mg/dL (8.4-10.2); Carbon Dioxide 32 mmol/L (22-32); Chloride 102 mmol/L (98-107); Estimated Glomerular Filt Rate > 60.0 mL/min (>60); Glucose 101 mg/dL (70-100); HEMOLYSIS < 15 (0-50); Sodium 138 mmol/L (137-145)
[2021-05-24 05:25] LABS: Vancomycin Trough 13.9 ug/mL (10-20)
[2021-05-24] MEDS: VANCOMYCIN TROUGH 1 REQUEST MISC (05:28)
[2021-05-24] MEDS: VANCOMYCIN 1,250 MG/250 ML PIGGYBACK 250 MG IV ×2 (05:29→13:06)
[2021-05-24] MEDS: OXYCODONE IR 5 MG TABLET PO (06:45)
[2021-05-24] MEDS: PANTOPRAZOLE DR 20 MG TABLET PO (06:46)
[2021-05-24 08:15] VITALS: O2SAT 94
[2021-05-24 08:34] VITALS: BP 140/75; PULSE 101; RESP 19; TEMP 37.3; O2SAT 98
[2021-05-24] MEDS: ACETAMINOPHEN 325 MG TABLET 975 MG PO ×2 (08:45→15:19)
[2021-05-24] MEDS: DOCUSATE 100 MG CAPSULE PO (08:45)
--- NOTE | 2021-05-24 09:00 | PT.IIE ---
Current Diagnoses Cellulitis of left finger (05/24/21) Local infection of the skin and subcutaneous tissue, unspecified (05/24/21) Surgery Performed Operation Date: 05/23/21 13:45 Actual Procedures p Incision and Drainage index finger(Left) - Allyson Silva MD Physical Therapy Inpatient Evaluation/Re-Eval M1 PT/OT-IP Prior Functional Status Start: 05/24/21 08:28 Freq: NEEDED Status: Active Protocol: Document 05/24/21 08:30 LRN (Rec: 05/24/21 14:06 LRN [id number]) Medical Review Prior Functional Status Medical History Reviewed Yes Mobility and Gait Independent without dysfunction Activities of Daily Living and IADL's Independent, pain in hands. 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 12 steps with railing on R ascending, L desending. 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 Additional Social History Comment Employed as electro mechanical technician M2 PT-IP Current Condition Start: 05/24/21 08:28 Freq: NEEDED Status: Active Protocol: Document 05/24/21 08:30 LRN (Rec: 05/24/21 14:06 LRN [id number]) Physical Therapy Current Condition Current Condition Evaluation Date 05/24/21 Treatment Diagnosis Cut L hand, possible infection Onset Date 05/24/21 M3 PT-IP Subjective Start: 05/24/21 08:28 Freq: NEEDED Status: Active Protocol: Document 05/24/21 08:30 LRN (Rec: 05/24/21 14:06 LRN [id number]) Subjective Physical Therapy Visit Type Type Initial Evaluation Visit Start Time 08:15 Visit Stop Time 09:00 Total Visit Minutes 45 Physical Therapy Visit Comments Patient Comments Pt concerned that he is going to have a portion of his L index finger cut off because its black. L hand is his dominant hand. Patient Goals Pt goal is to go home and get use of his finger. Therapy Pain Assessment Pain When Pain Assessed At Rest Pain Present Pain Present Denied Pain M4 PT-IP Mobility and Gait Start: 05/24/21 08:28 Freq: NEEDED Status: Active Protocol: Document 05/24/21 08:30 LRN (Rec: 05/24/21 14:06 LRN [id number]) PT-Bed Mobility Assessment Sit to Supine Sit to Supine Independent PT-Transfer Assessment Comments Mobility Comments Pt sitting at EOB at start of chart review. Pt supine in bed at start of physical assessment. Nursing reports patient is independent and for awhile, did not know where the pt had walked off to. Pt is independent in his room. Pt noted he walked independently to the cafeteria and roamed the hospital (nsg reported he was gone for ~45 minutes). Gait Assessment Gait Gait Assistance Required: Independent Assistive Devices Assistive Device None Comments Gait Comments Gait assessment based on subjective history of patient and nursing. Stair Climbing Assessment Evaluation Level of Assist On Stairs Independent Comments Stair Climbing Comments Pt assessment based on pt's report of walking 2 flights of stairs to cafeteria and back independently. M5 PT-IP Objective Assessments Start: 05/24/21 08:28 Freq: NEEDED Status: Active Protocol: Document 05/24/21 08:30 LRN (Rec: 05/24/21 14:06 LRN [id number]) Orientation Orientation/Cognition Level of Alertness Alert Orientation Name,Date,Place,Situation Language Function Ability No Deficits Noted Memory Description No Deficits Noted Gross Range of Motion Upper Extremity ROM Impairments AROM of L wrist and L fingers. L index finger in wrap. Strength Upper Extremity Strength Assessment Left Impaired Shoulder WNL Elbow WNL Wrist WNL for flex, ext, UD, RD, sup , pron Hand Deferred due to recent I&D surgery. Other Assessments Other Other Assessments Edema noted in L hand compared to R hand. Edema in L hand increased in all digits and hand. No creases note in dorsal surface of hand and fingers until after pt elevated his hand after ~10'. Creases were then noted in his fingers. M6 PT-IP Treatment Start: 05/24/21 08:28 Freq: NEEDED Status: Active Protocol: Document 05/24/21 08:30 LRN (Rec: 05/24/21 14:06 LRN [id number]) Physical Therapy Treatment Exercises Exercises Wrist ROM,Hand ROM Education Education Provided Precautions Other Treatments Other Treatment Performed Pt educated in precautions of L index finger ROM ex's to prevent dehissing of wound. Educated pt in edema management of hand, of Rest, Ice to L index finger with covering for no more than 8 minutes and elevation of hand, and contrast bath technique for edema management with specific instructions for temp to be checked and not to be hot, and to use protective gloves to keep finger/incision clean & dry. M7 PT-IP Assessment and Plan Start: 05/24/21 08:28 Freq: NEEDED Status: Active Protocol: Document 05/24/21 08:30 LRN (Rec: 05/24/21 14:06 LRN [id number]) PT Summary Assessment and Plan Potential Rehabilitation Potential Good Status of Condition at Evaluation Evolving Summary Impairments Pain,ROM,Strength,Activity Tolerance Assessment Summary Pt is a 56 year old male who is s/p I&D of the L index finger due to infection. Pt's L index finger is packed and wrapped with minimal movement available with the wrapping. Pt appears to have a good understanding of his limitations and is receptive to education of finger exercises, but limited to due to pain onset of only flex/ext exercises of the fingers. Pt will be issued a HEP, but may have difficulty with follow through due to pain and bandage restriction with movement, and possible difficulty with edema management as he would need to don a protective glove in order to do contrast baths. When his incision has healed, if the pt is having difficulty regaining ROM, it is recommended that he be referred to outpatient hand physical or occupational therapy. Goals Other Goals Pt independent with self care HEP of finger flex/ext ROM ex' s and educated in self care edema and pain management techniques. Days to Meet Goals 1 Frequency of Treatment Frequency Of Treatment Twice a Day Treatment Plan Physical Therapy Treatment Plan Therapeutic Exercise,Hot or Cold Pack Other Recommendations and Next Treatment Review HEP and issue handouts. Focus DC next visit to self care HEP unless pt needs further training/education. Precautions Other Precautions Limited L finger ROM as tolerated s/o I&D surgery due to infection. Recommendations To Nursing Amount of Assist Needed Independent Discharge Recommendations PT Discharge Recommendations Home Other Discharge Recommendations If limited L finger ROM, recommend outpatient OT or PT when incision well healed. Transportation Needs at Discharge Private Vehicle
--- NOTE | 2021-05-24 13:05 | PM.PNPO.1 ---
Subjective Subjective Date Patient Seen: 05/24/21 Time Patient Seen: 07:00 Interval history: Sitting up in bed, looking at breakfast menu, expressed agitation when I interrupted him to examine his finger. Exam Vital Signs (past 8 hours): - 05/24/21 08:15 05/24/21 08:34 Temperature 99.2 F Pulse Rate 101 H Respiratory Rate 19 Blood Pressure 140/75 Pulse Oximetry 94 98 Oxygen Delivery Method Room Air Oxygen Flow Rate 0 Narrative Exam Narrative: His finger is wrapped in coban and when I began to unwrap it, he screamed in pain and jerked away from me. The rest of his hand looks fine, no sign of other or spreading infection. Cultures prelim S aureus, finals w/ sensitivity pending. Currently on vanco and Zosyn. Objective Labs Result Diagrams: 05/24/21 04:37 05/24/21 04:37 Labs: Laboratory Results - last 24 hr 05/24/21 05/24/21 05/24/21 04:37 04:37 04:37 WBC 12.7 H RBC 4.00 L Hgb 10.5 L Hct 33.1 L MCV 82.7 MCH 26.2 MCHC 31.6 RDW 14.8 Plt Count 285 Neut % (Auto) 82.1 H Lymph % (Auto) 8.3 L [place] % (Auto) 8.2 Eos % (Auto) 0.9 L Baso % (Auto) 0.5 Neut # (Auto) 96839 H Lymph # (Auto) 1000 L [place] # (Auto) 1000 H Eos # (Auto) 100 Baso # (Auto) 100 Sodium 138 Potassium 4.0 Chloride 102 Carbon Dioxide 32 BUN 8 L Creatinine 0.60 L Estimated GFR > 60.0 BUN/Creatinine Ratio 13.3 Glucose 101 H Calcium 8.4 Vancomycin Trough 13.9 PFSH Social History marital status: unknown household members: none Smoking Status: Current every day smoker alcohol intake: former Assessment & Plan Post-op Postoperative Procedures: Procedures Operation Date: 05/23/21 13:45 Actual Procedure Side Surgeon p Incision and Drainage index finger Left Allyson Silva MD Postoperative day: 1 Postoperative status narrative: Recovery as expected. No further areas of infection suspected at this time. Postoperative plan narrative: 1) BID dressing changes with warm soapy soaks. Attempt to leave a wick in incision if possible. 2) Final antibiotic pending sensitivities. Quality VTE Deep Vein Thrombosis/Pulmonary Embolism Present on Admission: No
[2021-05-24 13:10] VITALS: BP 135/77; PULSE 83; RESP 18; TEMP 37.1; O2SAT 97
--- NOTE | 2021-05-24 14:40 | PT.IPTN ---
Current Diagnoses Cellulitis of left finger (05/24/21) Local infection of the skin and subcutaneous tissue, unspecified (05/24/21) Surgery Performed Operation Date: 05/23/21 13:45 Actual Procedures p Incision and Drainage index finger(Left) - Allyson Silva MD Physical Therapy Treatment Note M2 PT-IP Current Condition Start: 05/24/21 08:28 Freq: NEEDED Status: Active Protocol: Document 05/24/21 08:30 LRN (Rec: 05/24/21 14:06 LRN [id number]) Physical Therapy Current Condition Current Condition Evaluation Date 05/24/21 Treatment Diagnosis Cut L hand, possible infection Onset Date 05/24/21 M3 PT-IP Subjective Start: 05/24/21 08:28 Freq: NEEDED Status: Active Protocol: Document 05/24/21 14:00 LRN (Rec: 05/24/21 17:20 LRN [id number]) Subjective Physical Therapy Visit Type Type Treatment Note Visit Start Time 14:00 Visit Stop Time 14:35 Total Visit Minutes 35 Physical Therapy Visit Comments Patient Comments Pt agreeable to therapy, but not willing to ambulate outside the room due to his L index finger needed to be wrapped. Therapy Pain Assessment Pain When Pain Assessed At Rest Pain Present Pain Present Denied Pain Location Left Hand Intensity 0 Scale Used Numeric (0 - 10) M4 PT-IP Mobility and Gait Start: 05/24/21 08:28 Freq: NEEDED Status: Active Protocol: Document 05/24/21 08:30 LRN (Rec: 05/24/21 14:06 LRN [id number]) PT-Bed Mobility Assessment Sit to Supine Sit to Supine Independent PT-Transfer Assessment Comments Mobility Comments Pt sitting at EOB at start of chart review. Pt supine in bed at start of physical assessment. Nursing reports patient is independent and for awhile, did not know where the pt had walked off to. Pt is independent in his room. Pt noted he walked independently to the cafeteria and roamed the hospital (nsg reported he was gone for ~45 minutes). Gait Assessment Gait Gait Assistance Required: Independent Assistive Devices Assistive Device None Comments Gait Comments Gait assessment based on subjective history of patient and nursing. Stair Climbing Assessment Evaluation Level of Assist On Stairs Independent Comments Stair Climbing Comments Pt assessment based on pt's report of walking 2 flights of stairs to cafeteria and back independently. M5 PT-IP Objective Assessments Start: 05/24/21 08:28 Freq: NEEDED Status: Active Protocol: Document 05/24/21 14:00 LRN (Rec: 05/24/21 17:20 LRN [id number]) Orientation Orientation/Cognition Level of Alertness Alert M6 PT-IP Treatment Start: 05/24/21 08:28 Freq: NEEDED Status: Active Protocol: Document 05/24/21 14:00 LRN (Rec: 05/24/21 17:20 LRN [id number]) Physical Therapy Treatment Exercises Exercises Wrist ROM Education Education Provided Precautions,Safety Equipment Issued Equipment Type and Company Education: Reviewed with handouts issued: Edema & pain management of RICE treatment and post acute healing stage of Contrast Bath Treatment with special instructions to wear glove to keep index finger clean and dry. Pt cautioned that temperatures need to be warm/cold for tolerance. Education: Reviewed and issued handouts for active wrist ROM and finger tendon glides with special instructions to not exercise into pain with precautions of not allowing dehissing suture. M7 PT-IP Assessment and Plan Start: 05/24/21 08:28 Freq: NEEDED Status: Active Protocol: Document 05/24/21 14:00 LRN (Rec: 05/24/21 17:20 LRN [id number]) PT Summary Assessment and Plan Potential Rehabilitation Potential Fair Status of Condition at Evaluation Evolving Summary Impairments Pain,ROM,Strength,Activity Tolerance Progress Towards Goals Goals Met Assessment Summary Pt appears to have a good understanding of his HEP although he is not able to perform the ex's well due to swelling and pain. The edema of the hand is much less with pt holding his hand in an elevated position. Pt is very receptive to the information on edema and pain management as well as the finger ex's. He deferred ROM of the fingers due to no bandage on the index finger and was concerned of what was bulging out of his finger. Pt is ready for discharge to his home program. Pt is independent with mobility from bed and with gait and nursing in agreement with his independence in mobility and discharge from PT to HEP. Goals Other Goals Pt independent with self care HEP of finger flex/ext ROM ex' s and educated in self care edema and pain management techniques. Days to Meet Goals 1 Treatment Plan Other Recommendations and Next Treatment Pt is being discharged from [facility] therapy to his independent HEP . Pt is independent with bed and gait mobility. Precautions Other Precautions Limited L finger ROM as tolerated s/o I&D surgery due to infection. Recommendations To Nursing Amount of Assist Needed Independent Discharge Recommendations PT Discharge Recommendations Home Other Discharge Recommendations If limited L finger ROM, recommend outpatient OT or PT when incision well healed. Transportation Needs at Discharge Private Vehicle
[2021-05-24] MEDS: OXYCODONE IR 10 MG TABLET PO (15:18)
[2021-05-24 16:27] VITALS: PULSE 80; RESP 16; O2SAT 97
--- NOTE | 2021-05-24 17:27 | P.PN_ITS ---
Subjective Subjective Date Patient Seen: 05/24/21 Interval history: 56-year-old male who was admitted to the hospital for a left index finger infection.? He is status post I&D and debridement.? There was a large amount of pus obtained in the operating room.? Exam Vital Signs (past 8 hours): - 05/24/21 13:10 05/24/21 16:27 Temperature 98.8 F Pulse Rate 83 80 Respiratory Rate 18 16 Blood Pressure 135/77 Pulse Oximetry 97 97 Oxygen Delivery Method Room Air Oxygen Flow Rate 0 Narrative Exam Narrative: General: Alert male NAD Left index finger: There is surgical wound on dorsal DIP and volar aspect with retained edwige. There is mild serosanguineous drainage. Mild erythema on middle dorsum of phalanx. Objective Labs Result Diagrams: 05/24/21 04:37 05/24/21 04:37 Labs: Laboratory Results - last 24 hr 05/24/21 05/24/21 05/24/21 04:37 04:37 04:37 WBC 12.7 H RBC 4.00 L Hgb 10.5 L Hct 33.1 L MCV 82.7 MCH 26.2 MCHC 31.6 RDW 14.8 Plt Count 285 Neut % (Auto) 82.1 H Lymph % (Auto) 8.3 L [place] % (Auto) 8.2 Eos % (Auto) 0.9 L Baso % (Auto) 0.5 Neut # (Auto) 34612 H Lymph # (Auto) 1000 L [place] # (Auto) 1000 H Eos # (Auto) 100 Baso # (Auto) 100 Sodium 138 Potassium 4.0 Chloride 102 Carbon Dioxide 32 BUN 8 L Creatinine 0.60 L Estimated GFR > 60.0 BUN/Creatinine Ratio 13.3 Glucose 101 H Calcium 8.4 Vancomycin Trough 13.9 PFSH Social History marital status: unknown household members: none Smoking Status: Current every day smoker alcohol intake: former Assessment & Plan Assessment & Plan narrative: 1. Septic arthritis involving the left index finger -patient is status post I&D -OR culture growing Staph aureus -continue IV vancomycin, discontinueZosyn -continue pain medication 2. Nicotine dependence -nicotine patch Time Spent With Patient Critical Care time: I spent a total of [] minutes of critical care time on this patient's care today; this time is exclusive of procedural time. Quality VTE Deep Vein Thrombosis/Pulmonary Embolism Present on Admission: No
--- NOTE | 2021-05-24 17:50 | P.DS_ITS ---
History of Present Illness History of Present Illness Chief complaint: Cut left hand pos infection Narrative: 56-year-old male who was admitted to the hospital for a left index finger infection Discharge Providers Provider Date of admission: 05/24/21 12:40 Discharge Date: 05/24/21 Consults: 05/23/21 16:49 Consult to Discharge Planning Routine Comment: Consult to Physical Therapy Evaluate & Treat Comment: Finger range of motion courage flexion-extension Physician Instructions: Evaluate and Treat Consult to Respiratory Therapy Evaluate & Treat Comment: Physician Instructions: Evaluate and treat Discharge provider: Galdino Salamanca MD Summary Hospital Course Discharge Diagnosis: 1. Septic arthritis of the DIP and felon involving the left index finger 2. Cigarette dependence Procedure: Irrigation debridement left index finger distal interphalangeal joint CPT code 38909 Irrigation debridement left middle finger felon CPT code 68174-20 Hospital Course: Patient was admitted and started on broad-spectrum antibiotic coverage for infected left index finger. Ortho consulted. He had I&D performed in the OR. He has postop wound on the D IP as well as volar aspect of finger pad. Patient unfortunately kept leaving the floor unannounced and without explanation for hours at a time. He finally decided to leave Against Medical Advice. His wound culture is growing MRSA with final sensitivities pending. He did agree to supervisor picking crew outpatient antibiotic and follow-up at ortho clinic as instructed. Exam Vital Signs (past 8 hours): - 05/24/21 13:10 05/24/21 16:27 Temperature 98.8 F Pulse Rate 83 80 Respiratory Rate 18 16 Blood Pressure 135/77 Pulse Oximetry 97 97 Oxygen Delivery Method Room Air Oxygen Flow Rate 0 Objective Labs Result Diagrams: 05/24/21 04:37 05/24/21 04:37 Labs: Laboratory Results - last 24 hr 05/24/21 05/24/21 05/24/21 04:37 04:37 04:37 WBC 12.7 H RBC 4.00 L Hgb 10.5 L Hct 33.1 L MCV 82.7 MCH 26.2 MCHC 31.6 RDW 14.8 Plt Count 285 Neut % (Auto) 82.1 H Lymph % (Auto) 8.3 L [place] % (Auto) 8.2 Eos % (Auto) 0.9 L Baso % (Auto) 0.5 Neut # (Auto) 06934 H Lymph # (Auto) 1000 L [place] # (Auto) 1000 H Eos # (Auto) 100 Baso # (Auto) 100 Sodium 138 Potassium 4.0 Chloride 102 Carbon Dioxide 32 BUN 8 L Creatinine 0.60 L Estimated GFR > 60.0 BUN/Creatinine Ratio 13.3 Glucose 101 H Calcium 8.4 Vancomycin Trough 13.9 PFSH Social History marital status: unknown household members: none Smoking Status: Current every day smoker alcohol intake: former Discharge Plan Discharge Plan Patient Disposition: Home Provider Discharge Comment: Make sure to take prescribed antibiotic. Keep wounds clean at all times. Do warm soaks several times a day. Leave sutures in until follow up at ortho clinic. Discharge orders & Medications Prescriptions: New sulfamethoxazole-trimethoprim [Bactrim DS] 800-160 mg tablet 1 tab PO BID Qty: 20 0RF Follow up/Referrals: Allyson Silva MD [Physician] - 1 Week Discharge Health Status Multidrug resistant organism: MRSA Diet/Activity/Treatments Diet: Regular Other treatments: Soak your finger twice a day in warm soapy water and redress t he wound. Visit Report/Discharge Packet Instructions: DI for Incision and Drainage of a Joint Quality VTE Deep Vein Thrombosis/Pulmonary Embolism Present on Admission: No
--- NOTE | 2021-05-24 18:19 | PC.NURSE ---
Pt left upper floor this am, He was gone for 45 mins possibly more, he was made aware he could not leave the upper level, he had also taken apart his IV and was made aware he could not do that. This afternoon he was found missing from his room again. He had stopped his vanco mid infusion. He was gone for about 2 hours and returned. The patient was very upset saying he had informed someone he was leaving yet no staff member recalls this. He also disputed if he had really been gone for 2 hours. SI'm tired of everybody acting like the police around here. I'm tired of you following up on me. I've had enough, I'm leaving. Dr. Salamanca made aware that pt intends to leave. See new orders and antibiotic. Pt reports he will pick med up and take it. Reviewed d/c packet, pt aware he does have a staph infection but we do not have final results. He is receiving an antibiotic which is used if he does have MRSA but we don't know yet if it is the right antibiotic so it is important for him to keep his follow up. I am unable to make the follow up as the offices have closed and it is a week end coming up. He must make follow up appt. He needs to let them know he was in the hospital. He stated he would call for a follow up on Thursday. Pt given dressing supply changes for the next 4 days, understands his wound care instructions. Asked if he would like his called for a ride or anything, he declined. SI don't want to tell her anything, and you don't either. Pt is adament he doesn't want called. Pt d/c to home on his own power.
== END 2021-05-24 18:10 | disposition home or self-care (01) | DRG 316 ==
LOC: ED 20:47 → AC 20:52
PROVIDERS: Orthopaedic Surgery Foot and Ankle Surgery; Admitting Provider Family Medicine; Emergency Provider Nurse Practitioner Family; Referring Provider Nurse Practitioner Family; Visit Provider Family Medicine
PROC: 0R9X0ZZ Drainage of Left Finger Phalangeal Joint, Open Approach (ICD-10-PCS; principal; 2021-05-23 13:45)
DX: M00.042 Staphylococcal arthritis, left hand (principal); B95.62 Methicillin resistant Staphylococcus aureus infection as the cause of diseases classified elsewhere; L03.012 Cellulitis of left finger; I96 Gangrene, not elsewhere classified; Z53.29 Procedure and treatment not carried out because of patient's decision for other reasons; F17.200 Nicotine dependence, unspecified, uncomplicated; Z20.822 Contact with and (suspected) exposure to COVID-19
CPT/HCPCS: 36415; 73140; 80048; 80053; 80202; 83605; 84145; 85025; 85651; 86140; 87040; 87070; 87075; 87077; 87147; 87186; 87205; 87635; 96361; 96365; 96375; 96376; 97162; 97535; 99284; 99406; C9803; G0378; J0171; J1170; J2250; J2270; J2405; J2543; J3010

== ENCOUNTER 2021-12-17 15:53 | Emergency (ER) | payer OTHER, MEDICAID, SELFPAY ==
[2021-12-17 16:27] VITALS: BP 106/57; PULSE 93; RESP 18; TEMP 37.2; O2SAT 96
--- NOTE | 2021-12-17 19:53 | ED_ITS ---
HPI - Skin/Abscess/Foreign Bdy General Chief complaint: Skin/Abscess/Foreign Body Stated complaint: Right eye infection Time Seen by Provider: 12/17/21 19:53 Source: patient Mode of arrival: Ambulatory History of Present Illness HPI narrative: 56-year-old male daily smoker with history of prior skin infections presents with a chief complaint pain, redness and swelling of his right lower lid and overlying his zygoma. He denies any eye pain, redness or drainage. He denies any blurred vision. He denies any injury but thinks maybe a spider bit him. He is had no fever or chills. He denies any nausea, vomiting or diarrhea. There is a small scabbed region that he states he got some yellowish liquid out of Related Data Previous Rx's Medication Instructions Recorded sulfamethoxazole 800 1 tab PO BID #20 tabs 05/24/21 mg-trimethoprim 160 mg tablet (Bactrim DS) doxycycline hyclate 100 mg tablet 100 mg PO BID #20 tabs 12/17/21 Allergies Allergy/AdvReac Type Severity Reaction Status Date / Time hydrocodone AdvReac Intermediate Nausea Verified 05/23/21 14:18 Review of Systems Review of Systems Narrative: GENERAL: Denies chills, fatigue, malaise, fever, sweats. HEENT: See HPI RESPIRATORY: Denies dyspnea, cough, wheezing, hemoptysis, sputum. CARDIOVASCULAR: Denies chest pain, palpitations, orthopnea, edema, GASTROINTESTINAL: Denies nausea, vomiting, abdominal pain, diarrhea, constipation, melena. : Denies dysuria, frequency, incontinence, hematuria, urinary retention. MUSCULOSKELETAL: denies weakness, joint pain, or bony pain SKIN: See HPI NEUROLOGIC: Denies weakness, headache, numbness, change in speech, confusion, seizures, incoordination. PSYCHIATRIC: No concerning psychosocial issues. 12 point review of systems is negative except for those stated above Patient History Social History marital status: unknown household members: none Smoking Status: Current every day smoker alcohol intake: former Smoking Status: Current every day smoker Substance Use Type: does not use Exam Narrative Exam Narrative: GEN: AOx3 and in mild distress EYES: Pupils are equal, round, and reactive to light and accommodation. Extraoccular muscles are intact bilaterally. There is no subconjunctival hemorrhage or exudate. CHEST: Lungs are clear to auscultation bilaterally and free of wheezes, rales, or rhonchi. Heart rate is regular rhythm, there are no murmurs, clicks, rubs, or gallops. There is no chest wall tenderness. ABD: Abdomen is soft and nontender. There is no guarding or rebound. Bowel sounds are normal in all 4 quadrants. There is no mass or organomegaly. EXT: Full painless ROM of all extremities with no loss of sensation or strength. SKIN: Erythema, warmth and induration with a scabbed lesion just superior to right zygoma and lower lid. No induration or fluctuance Initial Vital Signs Initial Vital Signs: Vital Signs Temperature 98.9 F 12/17/21 16:27 Pulse Rate 93 H 12/17/21 16:27 Respiratory Rate 18 12/17/21 16:27 Blood Pressure 106/57 L 12/17/21 16:27 Pulse Oximetry 96 12/17/21 16:27 Oxygen Delivery Method 12/17/21 16:27 Course Orders Ordered: Discontinued Medications Doxycycline Hyclate (Doxycycline Hyclate 100 Mg Tablet) 100 mg PO NOW ONE Stop: 12/17/21 20:20 Vital Signs Vital signs: Vital Signs - 8 hr 12/17/21 16:27 12/17/21 20:10 Temperature 98.9 F Pulse Rate 93 H 67 Respiratory Rate 18 14 Blood Pressure 106/57 L 130/87 Pulse Oximetry 96 98 Oxygen Delivery Method Room Air Room Air MDM - Skin/Abscess/Foreign Bdy MDM Narrative Medical decision making narrative: Redness and swelling in the absence of injury consistent with infection. No evidence of induration or fluctuance Discharge Plan Departure Patient Disposition: Home Clinical Impression: Cellulitis and abscess of face Instructions: DI for Cellulitis -- Adult Activity Restrictions/Additional Instructions: *You have been diagnosed with [facial swelling and redness] *What to do: *Please continue to take your regular medications as directed. [x ] New medication prescriptions sent to your pharmacy: [[facility] ] [ ] New medication written as a paper prescription [ ] No new medications given *Please follow up with your primary care provider in 2-3 days, call for an appointment. Let them know you were seen in the Emergency Department and that we ask that you be seen in follow up. We will electronically transmit a record of today's note if your PCP is in our system *If you do not have a primary care provider please contact the [facility] Resource line at [phone]. They will ask some questions about your medical history and help get you set up with a doctor in the community. *Return to Emergency Department if you should have any new, worsening or concerning symptoms, such as [fever greater than 101 F, shaking chills, worsening pain, persistent vomiting or other bothersome symptoms] Prescriptions: New doxycycline hyclate 100 mg tablet 100 mg PO BID Qty: 20 0RF No Action sulfamethoxazole-trimethoprim [Bactrim DS] 800-160 mg tablet 1 tab PO BID Qty: 20 0RF
[2021-12-17 20:10] VITALS: BP 130/87; PULSE 67; RESP 14; O2SAT 98
[2021-12-17] MEDS: DOXYCYCLINE HYCLATE 100 MG TABLET PO (20:29)
[2021-12-17 20:33] VITALS: BP 138/78; PULSE 77; RESP 16; O2SAT 99
== END 2021-12-17 20:34 | disposition home or self-care (01) ==
PROVIDERS: Emergency Provider Emergency Medicine
DX: L03.211 Cellulitis of face (principal); L02.01 Cutaneous abscess of face
CPT/HCPCS: 99283

== ENCOUNTER 2021-12-19 14:00 | Emergency (ER) | payer OTHER, MEDICAID, SELFPAY ==
[2021-12-19 14:10] VITALS: BP 130/71; PULSE 98; RESP 16; TEMP 36.9; O2SAT 100
--- NOTE | 2021-12-19 14:33 | ED_ITS ---
HPI - General Adult General Chief complaint: Eye Problems Stated complaint: Right eye swollen/leaking fluid. Fever. Here tues Time Seen by Provider: 12/19/21 14:29 Source: patient and family Mode of arrival: Ambulatory History of Present Illness HPI narrative: Patient is a 56-year-old male who was seen here last week for what was diagnosed as cellulitis and abscess to the skin around his right eye. He is placed on antibiotics. He has had these antibiotics for the past several days and is still continuing to have symptoms. It is more red and swollen. There is a area inferior to his right eye that drained earlier today. No fevers. No dental pain. Related Data Previous Rx's Medication Instructions Recorded sulfamethoxazole 800 1 tab PO BID #20 tabs 05/24/21 mg-trimethoprim 160 mg tablet (Bactrim DS) doxycycline hyclate 100 mg tablet 100 mg PO BID #20 tabs 12/17/21 Allergies Allergy/AdvReac Type Severity Reaction Status Date / Time hydrocodone AdvReac Intermediate Nausea Verified 05/23/21 14:18 Review of Systems Constitutional Constitutional: Reports system reviewed and no additional complaints, except as documented Eyes Eyes: Reports system reviewed and no additional complaints, except as documented ENT Ears, Nose, Mouth, and Throat: Reports system reviewed and no additional complaints, except as documented Integumentary/Breasts Skin/Breast: Reports system reviewed and no additional complaints, except as documented Patient History Social History marital status: unknown household members: none Smoking Status: Current every day smoker alcohol intake: former Smoking Status: Current every day smoker alcohol intake frequency: 0-2 drinks per day Substance Use Type: does not use Exam Initial Vital Signs Initial Vital Signs: Vital Signs Temperature 98.5 F 12/19/21 14:10 Pulse Rate 98 H 12/19/21 14:10 Respiratory Rate 16 12/19/21 14:10 Blood Pressure 130/71 12/19/21 14:10 Pulse Oximetry 100 12/19/21 14:10 Oxygen Delivery Method 12/19/21 14:10 HENHI Face and sinus: erythema, edema and fluctuance Eyes Pupils: PERRL Other: No proptosis Skin Other: Redness and swelling circumferential to the right eye. Course Orders Ordered: ED Orders 12/19/21 14:40 Basic Metabolic Panel Stat Complete Blood Count AUTO DIFF Stat 12/19/21 14:43 CT facial bones w con Stat Vital Signs Vital signs: Vital Signs - 8 hr 12/19/21 14:10 Temperature 98.5 F Pulse Rate 98 H Respiratory Rate 16 Blood Pressure 130/71 Pulse Oximetry 100 Oxygen Delivery Method Room Air Medical Decision Making Medical Records Medical records reviewed: Yes I reviewed the patient's medical records. Lab Data Lab results reviewed: Yes I reviewed the patient's lab results. Result diagrams: 12/19/21 14:40 12/19/21 14:40 Labs: Lab Results 12/19/21 12/19/21 Range/Units 14:40 14:40 WBC 10.0 (4.5-11.0) X10^3/uL RBC 4.29 L (4.5-5.9) X10^6/uL Hgb 11.7 L (13.5-17.5) g/dL Hct 35.4 L (41-53) % MCV 82.4 (80-100) fL MCH 27.4 (26-34) PG MCHC 33.2 (30-36) % RDW 14.7 (11.6-14.8) % Plt Count 230 (150-400) X10^3/uL Neut % (Auto) 80.4 H (50-75) % Lymph % (Auto) 9.6 L (25-40) % Bleckley % (Auto) 9.0 (3-14) % Eos % (Auto) 0.4 L (2-4) % Baso % (Auto) 0.6 (0-2) % Neut # (Auto) 8100 H (5462-1791) /uL Lymph # (Auto) 1000 L (1645-9118) /uL Bleckley # (Auto) 900 (0-900) /uL Eos # (Auto) 0 (0-450) /uL Baso # (Auto) 100 (0-100) /uL Sodium 136 L (137-145) mmol/L Potassium 4.1 (3.4-5.1) mmol/L Chloride 96 L (98-107) mmol/L Carbon Dioxide 32 (22-32) mmol/L BUN 13 (9-20) mg/dL Creatinine 0.61 L (0.66-1.25) mg/dL Estimated GFR > 60 (>60) mL/min BUN/Creatinine Ratio 21.3 (6-22) Glucose 141 H (70-100) mg/dL Calcium 8.8 (8.4-10.2) mg/dL Imaging Data Ct face: Radiologist's Impression: [address] [address] [address] Scan Report Signed Patient: Jevon Rangel MR#: [id number] : 1965 Acct:[id number] Age/Sex: 56 / M Date of Service: 12/19/21 Loc: ED Accession Number: [id number] ?? Procedure: CT facial bones w con Ordering Provider: Kevin Best D.O. PROCEDURE:? CT FACIAL BONES W CON ? INDICATIONS:? R orbit abscess vs cellulitis vs orbital cellulitis ? TECHNIQUE:? After the administration of intravenous contrast, 2.5 mm axial sections acquired from the mid-neck to the frontal sinuses, with coronal and sagittal reformats.? For radiation dose reduction, the following was used:? automated exposure control, adjustment of mA and/or kV according to patient size.? ? COMPARISON:? None. ? FINDINGS:? Image quality:? Excellent.? ? Soft tissues:? There is periorbital soft tissue thickening adjacent to the right lateral orbit without focal fluid collection to indicate abscess.? The bilateral globes are within normal limits.? No retro bulbar edema or fat stranding. ? Vascular:? Visualized vascular structures appear patent throughout.? Bony vascular foramina and canals appear normal.? ? Bones:? Facial bones appear intact, without fractures, erosions, or destruction.? Visualized portions of the skull base and auditory canals also appear normal.? ? Sinuses:? Paranasal sinuses are aerated without fluid levels, mucosal thickenin g, or mucoceles.? Mastoid air cells are aerated.? ? IMPRESSION:? Right periorbital cellulitis without abscess.? ? ? Dictated by: Jostin Ramirez M.D. on 12/19/2021 at 15:35 ? ? Approved by: Jostin Ramirez M.D. on 12/19/2021 at 15:38? MDM Narrative Medical decision making narrative: Patient declined a complete exam. He would not allow me to evaluate his oral cavity. Was minimally interactive with the exam/questioning. Patient has only been on antibiotics for 24 hours. He actually has only been taking it once a day. He states that he was told to take it once a day but the prescriptions as twice a day. I did inform him he should be taking it twice a day. It is draining. There is no fluctuance. CT scan shows no signs of drainable abscess nor orbital cellulitis. I will keep him on his current antibiotic regimen. Informed him that he could expect some continued drainage over the next couple days and he could use a warm compress over the area. He was given return precautions. He expressed understanding and agreement. Discharge Plan Departure Patient Disposition: Home Clinical Impression: Periorbital cellulitis Instructions: DI for Cellulitis -- Adult Activity Restrictions/Additional Instructions: Expect some continued drainage from the area over the next couple days. I would also recommend that you place a warm compress over the area to keep crusting from happening. I also recommend that you continue to take the doxycycline. This should be a 2 time a day medication not once a day. Return to the emergency department for any new or worsening symptoms. Prescriptions: No Action sulfamethoxazole-trimethoprim [Bactrim DS] 800-160 mg tablet 1 tab PO BID Qty: 20 0RF doxycycline hyclate 100 mg tablet 100 mg PO BID Qty: 20 0RF
--- NOTE | 2021-12-19 14:43 | DI.CT.S_ITS ---
PROCEDURE: CT FACIAL BONES W CON INDICATIONS: R orbit abscess vs cellulitis vs orbital cellulitis TECHNIQUE: After the administration of intravenous contrast, 2.5 mm axial sections acquired from the mid-neck to the frontal sinuses, with coronal and sagittal reformats. For radiation dose reduction, the following was used: automated exposure control, adjustment of mA and/or kV according to patient size. COMPARISON: None. FINDINGS: Image quality: Excellent. Soft tissues: There is periorbital soft tissue thickening adjacent to the right lateral orbit without focal fluid collection to indicate abscess. The bilateral globes are within normal limits. No retro bulbar edema or fat stranding. Vascular: Visualized vascular structures appear patent throughout. Bony vascular foramina and canals appear normal. Bones: Facial bones appear intact, without fractures, erosions, or destruction. Visualized portions of the skull base and auditory canals also appear normal. Sinuses: Paranasal sinuses are aerated without fluid levels, mucosal thickening, or mucoceles. Mastoid air cells are aerated. IMPRESSION: Right periorbital cellulitis without abscess. Dictated by: Jostin Ramirez M.D. on 12/19/2021 at 15:35 Approved by: Jostin Ramirez M.D. on 12/19/2021 at 15:38
[2021-12-19 15:04] LABS: Add Manual Diff / Slide Review NO; Basophils Absolute Auto 100 /uL (0-100); Basophils Percent Auto 0.6 % (0-2); Eosinophils Absolute Auto 0 /uL (0-450); Eosinophils Percent Auto 0.4 % (2-4); Hematocrit 35.4 % (41-53); Hemoglobin 11.7 g/dL (13.5-17.5); Lymphocytes Absolute Auto 1000 /uL (1100-4500); Lymphocytes Percent Auto 9.6 % (25-40); Mean Corpuscular HGB Conc 33.2 % (30-36); Mean Corpuscular Hemoglobin 27.4 PG (26-34); Mean Corpuscular Volume 82.4 fL (80-100); Monocytes Absolute Auto 900 /uL (0-900); Neutrophils Absolute Auto 8100 /uL (1500-7000); Neutrophils Percent Auto 80.4 % (50-75); Platelet Count 230 X10^3/uL (150-400); Red Blood Cell Count 4.29 X10^6/uL (4.5-5.9); Red Cell Distribution Width 14.7 % (11.6-14.8)
[2021-12-19 15:11] LABS: BUN Creatinine Ratio 21.3 (6-22); Blood Urea Nitrogen 13 mg/dL (9-20); Calcium 8.8 mg/dL (8.4-10.2); Carbon Dioxide 32 mmol/L (22-32); Chloride 96 mmol/L (98-107); Estimated Glomerular Filt Rate > 60 mL/min (>60); Glucose 141 mg/dL (70-100); HEMOLYSIS < 15 (0-50); Potassium 4.1 mmol/L (3.4-5.1); Sodium 136 mmol/L (137-145)
[2021-12-19 16:16] VITALS: PULSE 86; RESP 17; O2SAT 99
== END 2021-12-19 16:16 | disposition home or self-care (01) ==
PROVIDERS: Emergency Provider Emergency Medicine
DX: L03.213 Periorbital cellulitis (principal)
CPT/HCPCS: 36415; 70487; 80048; 85025; 99283; 99284; Q9967